=== PATIENT | male | born 1960 | race Caucasian/White ===

== ENCOUNTER → 2017-05-06 | Outpatient (CLI) | payer MEDICARE, OTHER ==
--- NOTE | 2017-05-06 10:05 | US ---
EXAMINATION TYPE: US prostate transrectal DATE OF EXAM: 05/06/2017 COMPARISON: NONE CLINICAL HISTORY: R97.20 elevated PSA. Elevated PSA This examination was performed using the transrectal probe. EXAM MEASUREMENTS: Gland Size: 4.6 x 2.8 x 4.7cm Volume: 31.9ml Predicted PSA: 3.8 Actual PSA (if available):2.75 Enlarged gland with slightly heterogeneous peripheral zone. No suspicious lesion identified. Heteroge neous central zone with calcification. IMPRESSION: Glandular enlargement without suspicious lesion identified at this time. Correlate clini sarah. Predicted PSA = volume x 0.12 ng/ml Calculated Volume = 0.5236 x L x W x H
== END | disposition home or self-care (01) ==
LOC: RADUSMAIN 08:43
PROVIDERS: ATTEND Family Medicine
DX: N40.0 Benign prostatic hyperplasia without lower urinary tract symptoms (principal); R97.20 Elevated prostate specific antigen [PSA]
CPT/HCPCS: 76872

== ENCOUNTER → 2017-05-17 | Outpatient (CLI) | payer OTHER | LOC: RADMRIMAIN 20:17 | PROVIDERS: ATTEND Family Medicine | DX: Z53.9 Procedure and treatment not carried out, unspecified reason (principal) ==

== ENCOUNTER → 2017-05-28 | Outpatient (CLI) | payer MEDICARE, OTHER ==
--- NOTE | 2017-05-28 08:52 | CT ---
EXAMINATION TYPE: CT lumbar spine wo con DATE OF EXAM: 05/28/2017 COMPARISON: NONE HISTORY: 57-year-old male with low back pain since injury in Mar, 2002. Previous fractures of T5, T6, and T8. Scanned by: LS and CS. TECHNIQUE: Contiguous axial scanning of the lumbar spine without IV contrast. Coronal and sagittal re constructions performed. CT DLP: 963.8 mGycm Automated exposure control for dose reduction was used. FINDINGS: No prevertebral or paravertebral soft tissue abnormality seen. There is mild degenerative change at both sacroiliac joints. Hypertrophic facet arthropathy mid to lower lumbar spine. There are bilateral L2 pars defects noted. Trace grade 1 retrolisthesis at L3-L4. Moderate degenerative disc disease particularly at L2-L3 and L3-L4 with disc interspace narrowing and disc osteophyte complex formation. Mild degenerative disc disease at additional levels. Vertebral body heights are maintained. At T12-L1, no spinal canal or neuroforaminal stenosis. At L1-L2, mild facet degenerative change without significant canal or foraminal stenosis. At L2-L3, there is disc osteophyte complex mildly narrowing the spinal canal along with hypertrophic facet arthropathy and the bony changes relating to the L2 pars defects. Changes result in moderate to severe left and mild right neuroforaminal stenosis. At L3-L4, there is hypertrophic facet arthropathy with grade 1 retrolisthesis and disc osteophyte com plex. There is mild narrowing of the spinal canal and moderate to severe right and moderate left neur oforaminal stenosis. At L4-L5, diffuse disc bulge and facet arthropathy. Changes result in mild right and moderate left ne uroforaminal stenosis without spinal canal stenosis. L5-S1, disc bulge and facet arthropathy. Changes contribute to [id number] right neuroforaminal stenosis. No spinal canal stenosis. IMPRESSION: 1. Chronic bilateral L2 pars defects. There is moderate disc/endplate degenerative change here at L2- L3 with disc height loss, vacuum phenomenon, and disc osteophyte complex which causes mild spinal can al stenosis. Moderate to severe left and mild right neural foraminal stenosis. 2. Facet arthropathy and resulting grade 1 retrolisthesis at L3-L4. Along with degenerative disc dise ase, there is mild spinal canal stenosis and moderate to severe right and moderate left neural forami nal stenosis. 3. Additional variable neuroforaminal narrowing in the remainder of the lumbar spine as outlined abov e.
--- NOTE | 2017-05-28 08:59 | CT ---
EXAMINATION TYPE: CT cervical spine wo con DATE OF EXAM: 05/28/2017 COMPARISON: NONE HISTORY: 57-year-old male Neck pain since previous injury in Mar, 2002. Previous fracture of C5. No p rior. Scanned by: LS and CS. TECHNIQUE: Contiguous axial scanning of the cervical spine without IV contrast. Coronal and sagittal reconstructions performed. CT DLP: 633.8 mGycm Automated exposure control for dose reduction was used. FINDINGS: No craniocervical junction abnormality, predental space widening, or prevertebral soft tissue swellin g. Reversal of the normal cervical lordosis with grade 1 retrolisthesis at C5-C6. Multilevel facet arthropathy particularly on the right with a bony ankylosis across the C4-C5 right-s ided facet joints. Moderate degenerative disc disease with disc space narrowing, endplate sclerosis, and endplate irregu larity particularly at C5-C7 levels. Disc osteophyte complex at C5-C6. Assessment of the spinal canal limited at C5-C6 and below secondary to artifact from the patient's sh oulders. At C2-C3, no spinal canal stenosis. There is mild right neural foraminal stenosis secondary to facet and uncovertebral joint arthropathy. At C3-C4, uncovertebral joint and facet arthropathy. Changes result in mild to moderate right neurofo raminal stenosis without spinal canal stenosis. At C4-C5, there is hypertrophic facet arthropathy without spinal canal stenosis. Changes contribute t o a moderate right neuroforaminal stenosis. At C5-C6, disc osteophyte complex with grade 1 retrolisthesis and hypertrophic facet and uncovertebra l joint arthropathy. Changes result in a moderate to severe right and moderate left neuroforaminal st enosis with possibly moderate or moderate to severe spinal canal stenosis. At C6-C7, there is facet and uncovertebral joint degenerative change. Changes result in moderate to s evere left and [id number] right neuroforaminal stenosis. Spinal canal assessment limited due to artifacts. At C7-T1, no significant neuroforaminal stenosis seen. Spinal canal assessment limited due to artifac ts. IMPRESSION: 1. MODERATE DISC/ENDPLATE DEGENERATIVE CHANGE LOWER CERVICAL SPINE FROM C5 THROUGH C7 LEVELS. 2. THERE IS GRADE 1 RETROLISTHESIS AT C5-C6 AND DISC OSTEOPHYTE COMPLEX CAUSING A MODERATE, POSSIBLY MODERATE TO SEVERE SPINAL CANAL STENOSIS AT THIS LEVEL. ASSESSMENT LIMITED DUE TO ARTIFACT FROM THE P ATIENT'S SHOULDERS. 3. ADDITIONAL SCATTERED FACET AND UNCOVERTEBRAL JOINT ARTHROPATHY THROUGHOUT. THERE IS VARIABLE NEURA L FORAMINAL STENOSIS OUTLINED ABOVE, MODERATE TO SEVERE ON THE RIGHT AND MODERATE ON THE LEFT AT C 5-C6. MODERATE TO SEVERE ON THE LEFT AND [id number] ON THE RIGHT AT C6-C7.
== END | disposition home or self-care (01) ==
LOC: RADCTMAIN 07:25
PROVIDERS: ATTEND Family Medicine
DX: M43.12 Spondylolisthesis, cervical region (principal); M47.812 Spondylosis without myelopathy or radiculopathy, cervical region; M46.92 Unspecified inflammatory spondylopathy, cervical region; M99.71 Connective tissue and disc stenosis of intervertebral foramina of cervical region; M48.061 Spinal stenosis, lumbar region without neurogenic claudication; M51.36 Other intervertebral disc degeneration, lumbar region; M46.96 Unspecified inflammatory spondylopathy, lumbar region; M43.16 Spondylolisthesis, lumbar region; M99.73 Connective tissue and disc stenosis of intervertebral foramina of lumbar region
CPT/HCPCS: 72125; 72131

== ENCOUNTER → 2018-05-26 | Outpatient (CLI) | payer MEDICARE ==
--- NOTE | 2018-05-26 12:12 | US ---
EXAMINATION TYPE: US carotid duplex BILAT DATE OF EXAM: 05/26/2018 COMPARISON: NONE CLINICAL HISTORY: R55 Syncope, R13.10 Dysphagia. Dizziness, htn EXAM MEASUREMENTS: RIGHT: Peak Systolic Velocity (PSV) cm/sec ----- Right CCA: 101.1 ----- Right ICA: 121.5 ----- Right ECA: 118.9 ICA/CCA ratio: 1.2 RIGHT: End Diastole cm/sec ----- Right CCA: 29.9 ----- Right ICA: 44.5 ----- Right ECA: 28.4 LEFT: Peak Systolic Velocity (PSV) cm/sec ----- Left CCA: 89.4 ----- Left ICA: 101.7 ----- Left ECA: 75.8 ICA/CCA ratio: 1.1 LEFT: End Diastole cm/sec ----- Left CCA: 33.9 ----- Left ICA: 38.3 ----- Left ECA: 16.3 VERTEBRALS (direction of flow): Right Vertebral: Antegrade Left Vertebral: Antegrade Rhythm: Normal Mild plaque at left bulb, bilateral intimal thickening, no elevated velocities, no significant stenos is. IMPRESSION: Mild degree of grayscale atheromatous plaquing with no sonographically evident hemodynam ically significant stenosis within either visualized carotid arterial system. Criteria for Assigning % of Stenosis / Diameter reduction (Estimation based on the indirect measurements of the internal carotid artery velocities (ICA PSV). 1. Normal (no stenosis)=ICA PSV < 125 cm/s: ratio < 2.0: ICA EDV<40 cm/s. 2. Less than 50% stenosis=ICA PSV < 125 cm/s: ratio < 2.0: ICA EDV<40 cm/s. 3. 50 to 69% stenosis=ICA PSV of 125 to 230 cm/s: ration 2.0 ? 4.0: ICA EDV 40-100 cm/s. 4. Greater than 70% stenosis to near occlusion= ICA PSV > 230 cm/s: ratio > 4.0: ICA EDV > 100 cm/s. 5. Near occlusion= ICA PSV velocities may be low or undetectable: variable ratio and ICA EDV. 6. Total occlusion=unable to detect flow.
--- NOTE | 2018-05-26 13:47 | FL ---
MODIFIED SWALLOW / DEGLUTITION STUDY DATE OF EXAM: 05/26/2018 CLINICAL HISTORY: 58-year-old male with sticking and coming back up, Dysphagia. TECHNIQUE: Deglutition study is performed utilizing thin liquid barium, honey and nectar thick liqui d barium, barium thick applesauce, and barium coated cracker. Total fluoroscopy time: 1 minute 45 seconds Total images: None. Real-time fluoroscopy support was provided to speech pathology. COMPARISON: None. FINDINGS: The oral and pharyngeal phases show satisfactory initiation and propagation with all modalities teste d. Normal mastication is seen with solid modalities tested. There is no evidence of penetration or aspiration with any modality tested. Moderate vallecular residuals are noted with solid consistency. Both lateral and AP views show no diverticular filling. IMPRESSION: 1. No evidence for penetration or aspiration. 2. Moderate vallecular residuals with solid consistencies. 3. Please refer to speech therapist notes for further details if necessary.
== END | disposition home or self-care (01) ==
LOC: RADUSWWP 11:11
PROVIDERS: ATTEND Internal Medicine
DX: I65.23 Occlusion and stenosis of bilateral carotid arteries (principal); R13.10 Dysphagia, unspecified
CPT/HCPCS: 74230; 93880

== ENCOUNTER → 2018-11-05 | Outpatient (CLI) | payer MEDICARE ==
--- NOTE | 2018-11-05 15:41 | CT ---
EXAMINATION TYPE: CT abdomen wo con DATE OF EXAM: 11/05/2018 COMPARISON: None HISTORY: Abdominal pain Examination of the solid and hollow viscera is limited given the lack of contrast. Unenhanced CT of t he abdomen was performed. GI contrast was administered. FINDINGS: LUNG BASES: No evidence for nodule. No evidence for infiltrate. LIVER/GB: The gallbladder is unremarkable. No solid space-occupying hepatic lesion. Subcentimeter hep atic cyst left hepatic lobe lateral segment. PANCREAS: No pancreatic mass identified. No inflammatory process seen. SPLEEN: No evidence for splenomegaly. No intrasplenic lesions seen. ADRENALS: No adrenal nodules identified. No evidence for thickening. KIDNEYS: No evidence for renal mass. No nephrolithiasis. No hydronephrosis. BOWEL: Appendix has a normal appearance. No evidence of bowel obstruction. No inflammatory process. Lymph nodes: No evidence for adenopathy greater than 1 cm. Abdominal aorta: Atheromatous changes seen. No evidence for aneurysm. Other: No significant abnormality. IMPRESSION: 1. Simple hepatic cyst left hepatic lobe. Otherwise unremarkable study.
== END ==
LOC: RADCTMAIN 14:44
PROVIDERS: ATTEND Internal Medicine
DX: R10.84 Generalized abdominal pain (principal); K76.89 Other specified diseases of liver
CPT/HCPCS: 74150

== ENCOUNTER 2018-12-16 09:33 | Day surgery (SDC) | payer MEDICARE ==
[2018-12-11 15:13] VITALS: BMI 29.5
[~2018-12-16 09:33] MED LIST: LACTATED RINGERS 1,000 ML IV SCH; LIDOCAINE 1% 20 ML VIAL (10MG/ML) FOR IV START INTRADERMA PRN
[2018-12-16 10:38] VITALS: RESP 16; TEMP 97.3
[2018-12-16] MEDS ORDERED: PROPOFOL 10 MG/ML 20 ML VIAL IV ONE (11:12)
[2018-12-16] MEDS ORDERED: LIDOCAINE 1% INJ 10MG/ML (20 ML MDV) ONE (11:12)
[2018-12-16] MEDS ORDERED: GLYCOPYRROLATE 0.2 MG/ML 2 ML VIAL ONE (11:12)
--- NOTE | 2018-12-16 11:59 | P.PCN ---
Date of Procedure: 12/16/18 Procedure(s) Performed: Procedure: 1. Esophagogastroduodenoscopy and biopsy. 2. Total colonoscopy. Preoperative diagnosis: Dysphagia and screening for colon cancer. Postoperative diagnosis: 1. Mild antral gastritis. 2. Normal colon exam. Preparation: HalfLytely prep. Sedation: Was provided by anesthesia. Brief clinical history: The patient is a 58-year-old male who was evaluated in the office earlier this month regarding abdominal pain and bloating of around 4 months duration as well as chronic dysphagia. The patient had no prior upper endoscopy or colonoscopy. Procedure: With the patient on his left lateral decubitus position and after informed consent and adequate sedation, I passed the Olympus-GIF H190 video upper endoscope through the cricopharyngeus down the esophagus. GE junction was around 41 cm from the incisors and there was no definite hiatal hernia or any obvious esophagitis or complicated reflux disease. Specifically, there were no strictures or Watters's esophagus. The endoscope was then passed into the stomach which was insufflated with air and inspected in detail including the retroflex view in the cardia. There was some mottling and erythema in the antrum but no ulcers or erosions. Pyloric channel, duodenal bulb, post bulbar area and descending duodenum appeared within normal limits. Because of his symptoms, I obtained biopsies from the duodenum, antrum and esophagus then the endoscope was withdrawn and I proceeded to perform the colonoscopy. Perianal area did not show any fissures or fistulas. There were no masses felt on digital rectal examination. The Olympus CFH 190L video colonoscope was then inserted in the rectum in the usual fashion and advanced to the cecum. The mucosa appeared healthy. No polyps or tumors were seen or any obvious diverticular disease or other pathology. I retroflexed the endoscope in the rectum before the endoscope was withdrawn. The patient tolerated the procedure well. Plan: The patient was reassured. Will await biopsy results and make further recommendations based on his course and biopsy results. I will keep you updated on his progress.
[2018-12-16 12:25] VITALS: BP 135/87; PULSE 67
== END 2018-12-16 12:38 | disposition home or self-care (01) ==
LOC: ORWHC2ENDO 09:33
DX: K29.50 Unspecified chronic gastritis without bleeding (principal); R13.10 Dysphagia, unspecified; K21.9 Gastro-esophageal reflux disease without esophagitis; I10 Essential (primary) hypertension; E78.5 Hyperlipidemia, unspecified; K58.9 Irritable bowel syndrome, unspecified; G25.81 Restless legs syndrome; F17.200 Nicotine dependence, unspecified, uncomplicated; Z79.82 Long term (current) use of aspirin; Z79.1 Long term (current) use of non-steroidal anti-inflammatories (NSAID); Z79.899 Other long term (current) drug therapy
CPT/HCPCS: 88305; 45378; 43239; J2001; J2704

== ENCOUNTER → 2020-09-22 | Outpatient (CLI) | payer MEDICARE ==
--- NOTE | 2020-09-22 12:24 | MR ---
MRI CERVICAL SPINE: CLINICAL HISTORY: Neck pain. History of C6-C7 fusion. TECHNIQUE: Multiplanar, multisequence imaging of the cervical spine is performed without IV contrast . COMPARISON: Outside cervical spine x-ray September 12, 2020. FINDINGS: Sagittal images of the cervical spine show the craniocervical junction to appear within nor mal limits. The cervical and upper thoracic spinal cord is normal in caliber and signal. There is pe rsistent grade 1 retrolisthesis C5 on C6. The vertebral body heights are normal. Mild to moderate di sc space narrowing and spurring C5-C6 and C6-C7 levels. The bone marrow signal intensity is within n ormal limits. Axial images at C2-C3 level show small right focal paracentral disc protrusion uncovertebral facet de generative changes, there is mild to moderate left greater than right bilateral neural foraminal narr owing and minimal effacement or thecal sac. Axial images at the C3-C4 level showed broad based right paracentral disc protrusion and uncovertebra l facet degenerative changes, there is effacement of the anterior thecal sac and [id number] karo ateral neural foraminal narrowing. Axial images at the C4-C5 level appear within normal limits. Axial images at C5-C6 level show spondylolisthesis with broad-based spur disc complex up to ventral s urface of the spinal cord, there is uncovertebral facet degenerative changes bilaterally, there is mo derate to advanced bilateral neural foraminal narrowing. Axial images at C6-C7 level showed broad based posterior disc protrusion and uncovertebral facet dege nerative changes bilaterally, there is effacement of anterior thecal sac and [id number]-lh-jvqqpm left along with moderate right-sided neural foraminal narrowing. Axial images at the C7-T1 level appear within normal limits. IMPRESSION: Multilevel degenerative changes, greatest findings noted at C5-C6 level as detailed above .
== END | disposition home or self-care (01) ==
LOC: RADMRIMAIN 07:39
PROVIDERS: ATTEND Internal Medicine
DX: M47.812 Spondylosis without myelopathy or radiculopathy, cervical region (principal); M50.223 Other cervical disc displacement at C6-C7 level; M43.12 Spondylolisthesis, cervical region
CPT/HCPCS: 72141